=== PATIENT | female | born 1940 | race Caucasian/White ===

== ENCOUNTER 2023-01-30 10:03 | Emergency (ER) | payer MEDICARE, OTHER ==
[~2023-01-30] VITALS: Ht 167.6 cm; Wt 77.1 kg
[2023-01-30 10:24] LABS: EOSINOPHILS 2.3 % (0-6); HEMATOCRIT 39.4 % (35.0-50.0); MCHC 32.8 g/dl (30-36)
[2023-01-30 10:28] LABS: BASOPHILS 0.5 % (0-2); HEMOGLOBIN 12.9 g/dL (12.0-18.0); LYMPHOCYTES 10.3 % (24-44); MCH 30.6 (27-36); MCV 93.2 fl (81-99); MONOCYTES 7.7 % (0-12); NEUTROPHILS 79.2 % (39-80); PLATELET COUNT 167 K/uL (140-440); RBC 4.23 M/ul (4.3-5.7); RDW 14.2 (10.5-15.0)
[2023-01-30 10:38] LABS: ALBUMIN 3.4 g/dL (3.4-5.0); ALBUMIN/GLOBULIN RATIO 1.17 (1.1-2.4); ANION GAP 13.2 (7-21); BILIRUBIN, TOTAL 0.4 ng/dL (0.2-1.0); BUN/CREATININE RATIO 27.95 (6.0-28.6); CREATININE, SERUM 0.93 mg/dL (0.55-1.02); POTASSIUM 4.2 mmol/L (3.5-5.1); PROTEIN, TOTAL 6.3 g/dL (6.4-8.2)
[2023-01-30] MEDS ORDERED: ONDANSETRON ODT8 MG PO (11:08)
[2023-01-30 11:15] VITALS: BP 159/80
== END 2023-01-30 11:13 | disposition home or self-care (01) ==
LOC: ED 10:03
PROVIDERS: Emergency Medicine
DX: K52.9 Noninfective gastroenteritis and colitis, unspecified (principal); R11.0 Nausea
CPT/HCPCS: 36415; 80053; 85025; 99284; J7030